=== PATIENT | female | born 1955 | race Caucasian/White ===

== ENCOUNTER 2020-06-01 07:36 | Outpatient (CLI) | payer OTHER, SELFPAY ==
--- NOTE | ~2020-06-01 | MR_ITS ---
EXAMINATION: MR thoracic spine wo con EXAM DATE: 06/01/2020 09:35 INDICATION: Cervical Disc Disorder W/Myelopathy . TECHNIQUE: Multi-sequential, multiplanar MR images of the thoracic spine were obtained without contra st. Sagittal T1, T2, T2 fat saturation, axial T2 weighted images reviewed. There is no prior study for comparison. FINDINGS: The spinal cord signal intensity and intrinsic morphology is normal. Minimal mid thoracic d isc disease. Thoracic central canal and neural foramen widely patent. Mild thoracic facet arthropathy . There are no suspicious marrow signal abnormalities. Paraspinal soft tissue is unremarkable. IMPRESSION: Minimal thoracic disc disease, mild arthropathy. Normal cord signal. Reviewed, dictated and finalized at location B. STRIAL RELATIONS ANALYST IMPRESSION: Minimal thoracic disc disease, mild arthropathy. Normal cord signa l.
--- NOTE | ~2020-06-01 | MR_ITS ---
EXAMINATION: MR cervical spine wo con EXAM DATE: 06/01/2020 09:35 INDICATION: Cervical disc disorder. Cervical fusion. Myelopathy. TECHNIQUE: Multi-sequential, multiplanar MR images of the cervical spine were obtained without contra st. Axial T2, axial T2 MERGE sequence. Sagittal T1, T2, T2 fat saturation images also obtained. Th ere is no prior study for comparison. FINDINGS: Cervical fusion C4-6, with anterior and likely interbody devices. Some metallic artifact f rom this. The vertebral bodies are aligned in the AP dimension. There is moderate disc disease at C3- 4. The vertebral body and disc heights are otherwise well maintained. The spinal cord signal intensit y and intrinsic morphology is normal. Cervicomedullary junction is normal in appearance. There are no suspicious marrow signal abnormalities. Paraspinal soft tissue is unremarkable. Level by level evaluation: C2-C3: Disc does not extend beyond the endplate margin. Uncovertebral joint arthropathy: None. Facet joint arthropathy: Mild bilateral. Neural foraminal stenosis: No stenosis. Central canal stenosis: No stenosis. C3-C4: There is a mild diffuse disc bulge. Uncovertebral joint arthropathy: Mild to moderate left, mild right. Facet joint arthropathy: Mild to moderate bilateral. Neural foraminal stenosis: Mild left. Central canal stenosis: No stenosis. C4-C5: This level is fused. Uncovertebral joint arthropathy: None. Facet joint arthropathy: Mild bilateral. Neural foraminal stenosis: No stenosis. Central canal stenosis: No stenosis. C5-C6: Disc does not extend beyond the endplate margin. Uncovertebral joint arthropathy: None. Facet joint arthropathy: None. Neural foraminal stenosis: No stenosis. Central canal stenosis: No stenosis. C6-C7: Disc does not extend beyond the endplate margin. Uncovertebral joint arthropathy: None. Facet joint arthropathy: Minimal left. Neural foraminal stenosis: No stenosis. Central canal stenosis: No stenosis. C7-T1: Disc does not extend beyond the endplate margin. Uncovertebral joint arthropathy: None. Facet joint arthropathy: Mild left. Neural foraminal stenosis: No stenosis. Central canal stenosis: No stenosis. IMPRESSION: 1. C3-4 moderate disc disease. 2. Cervical fusion C4-6. Reviewed, dictated and finalized at location B. RAL AR[employer]ANGER
== END 2020-06-01 07:37 | disposition home or self-care (01) ==
PROVIDERS: Visit Provider Psychiatry & Neurology Neurology
DX: M50.00 Cervical disc disorder with myelopathy, unspecified cervical region (principal); Z98.1 Arthrodesis status; M47.812 Spondylosis without myelopathy or radiculopathy, cervical region
CPT/HCPCS: 72141; 72146